=== PATIENT | female | born 1950 | race Caucasian/White ===

== ENCOUNTER 2016-11-17 | Outpatient (CLI) | payer OTHER | END 2016-11-17 15:04 | disposition home or self-care (01) | DX: M54.5 Low back pain (principal) ==

== ENCOUNTER 2017-01-11 14:05 | Outpatient (CLI) | payer OTHER | END 2017-01-11 14:06 | disposition home or self-care (01) | DX: Z12.31 Encounter for screening mammogram for malignant neoplasm of breast (principal) ==

== ENCOUNTER 2017-02-16 15:15 | Outpatient (CLI) | payer OTHER | END 2017-02-16 23:00 | DX: M54.5 Low back pain (principal) ==

== ENCOUNTER 2017-04-27 15:08 | Outpatient (CLI) | payer OTHER | END 2017-04-27 15:09 | disposition home or self-care (01) | LOC: CAM 15:08 | PROVIDERS: ATTEND Internal Medicine | DX: M54.5 Low back pain (principal) | CPT/HCPCS: 97811; 97813 ==

== ENCOUNTER 2017-05-11 15:04 | Outpatient (CLI) | payer OTHER | END 2017-05-11 15:05 | disposition home or self-care (01) | LOC: CAM 15:04 | PROVIDERS: ATTEND Internal Medicine | DX: M54.5 Low back pain (principal) | CPT/HCPCS: 97813; 97814 ==

== ENCOUNTER 2017-05-25 15:14 | Outpatient (CLI) | payer OTHER | END 2017-05-25 15:15 | disposition home or self-care (01) | LOC: CAM 15:14 | PROVIDERS: ATTEND Internal Medicine | DX: M54.5 Low back pain (principal) | CPT/HCPCS: 97813; 97814 ==

== ENCOUNTER 2017-06-08 15:06 | Outpatient (CLI) | payer OTHER | END 2017-06-08 15:07 | disposition home or self-care (01) | LOC: CAM 15:06 | PROVIDERS: ATTEND Internal Medicine | DX: M54.5 Low back pain (principal) | CPT/HCPCS: 97811; 97813 ==

== ENCOUNTER 2017-06-22 15:07 | Outpatient (CLI) | payer OTHER | END 2017-06-22 15:08 | disposition home or self-care (01) | LOC: CAM 15:07 | PROVIDERS: ATTEND Internal Medicine | DX: M54.5 Low back pain (principal) | CPT/HCPCS: 97810; 97811 ==

== ENCOUNTER 2017-07-18 20:14 | Outpatient (CLI) | payer OTHER ==
[2017-07-18 16:00] LABS: BASOPHILS % (AUTO) 0.6 %; EOSINOPHILS # (AUTO) 0.1 10^3/uL (0.0-0.7); EOSINOPHILS % (AUTO) 1.1 %; HCT - HEMATOCRIT 40.2 % (37.0-47.0); HGB - HEMOGLOBIN 13.3 g/dL (12.0-16.0); LYMPHOCYTES # (AUTO) 2.5 10^3/uL (1.5-3.5); LYMPHOCYTES % (AUTO) 42.7 %; MEAN CORPUSCULAR HEMOGLOBIN 29.2 pg (27.0-31.0); MEAN CORPUSCULAR VOLUME 88.3 fL (81.0-99.0); MEAN PLATELET VOLUME 8.1 fL (7.9-10.8); MONOCYTES # (AUTO) 0.5 10^3/uL (0.0-1.0); MONOCYTES % (AUTO) 8.5 %; NEUTROPHILS # (AUTO) 2.8 10^3/uL (1.5-6.6); NEUTROPHILS % (AUTO) 47.1 %; NUCLEATED RED BLOOD CELLS AUTO 0.1 /100WBC; RED BLOOD COUNT 4.55 10^6/uL (4.20-5.40); RED CELL DISTRIBUTION WIDTH 13.4 % (12.0-15.0); UNCORRECTED WHITE BLOOD COUNT 5.8 x10^3/uL; WHITE BLOOD COUNT 5.8 x10^3/uL (4.8-10.8)
[2017-07-18 16:20] LABS: ALBUMIN/GLOBULIN RATIO 1.5 (1.0-2.2); BILIRUBIN,TOTAL 0.8 mg/dL (0.2-1.0); BUN - BLOOD UREA NITROGEN 10 mg/dL (6-20); CARBON DIOXIDE - CO2 29 mmol/L (21-32); CHLORIDE 100 mmol/L (101-111); CHOL/HDL RATIO 2.6 (<4.4); CHOLESTEROL 200 mg/dL; CREATININE 0.7 mg/dL (0.4-1.0); GFR - MDRD 84 (>89); GLUCOSE 94 mg/dL (70-100); HDL CHOLESTEROL 78 mg/dL; LDL/HDL RATIO 1.3 (<4.4); POTASSIUM 3.8 mmol/L (3.5-5.0); SODIUM 137 mmol/L (135-145); TOTAL PROTEIN 7.2 g/dL (6.7-8.2); TRIGLYCERIDES 87 mg/dL; VLDL CHOLESTEROL 17 mg/dL
== END 2017-07-18 20:15 | disposition home or self-care (01) ==
LOC: LAB.R 20:14
PROVIDERS: ATTEND Physician Assistant Medical
DX: M81.0 Age-related osteoporosis without current pathological fracture (principal); Z79.899 Other long term (current) drug therapy; K21.9 Gastro-esophageal reflux disease without esophagitis; F41.9 Anxiety disorder, unspecified; Z11.59 Encounter for screening for other viral diseases; E03.9 Hypothyroidism, unspecified; Z72.89 Other problems related to lifestyle
CPT/HCPCS: 80053; 80061; 82306; 84443; 85025; 86803

== ENCOUNTER 2017-09-22 06:15 | Outpatient (CLI) | payer OTHER ==
[2017-09-22] MEDS ORDERED: IOPAMIDOL-300 100 ML VIAL ONE ×2 (07:11→08:29)
[2017-09-22 07:19] LABS: CREATININE 0.8 mg/dL (0.4-1.0)
[2017-09-22] MEDS: IOPAMIDOL-300 100 ML VIAL IVP ONE ×2 (08:02→08:34)
--- NOTE | 2017-09-22 12:40 | CT Report ---
CT IVP: 09/22/2017 CLINICAL INDICATION: Hematuria. TECHNIQUE: Axial CT images of the abdomen and pelvis were obtained prior to and following 100 mL of I sovue-300 intravenously, using split bolus technique. Initial dose infiltrated, and following checkin g the arm and replacing the IV, the examination proceeded. COMPARISON: CT of the abdomen and pelvis with contrast of 01/07/2016. FINDINGS: Limited evaluation of the lung bases is unremarkable. ABDOMEN: On the unenhanced images, there is no evidence of nephrolithiasis or hydronephrosis. The kid neys demonstrate symmetric uptake and excretion of contrast. Incidental cysts are present in the lowe r pole of the left kidney. No solid renal lesion or collecting system lesion is appreciated. The live r, spleen, pancreas and adrenal glands are unremarkable. The gallbladder is normal. No bowel dilatati on, free gas, or free fluid is present. No abdominal adenopathy is seen. PELVIS: The distal ureters and urinary bladder appear unremarkable. No pelvic free fluid or adenopath y is present. The osseous structures demonstrate degenerative changes. The previously noted small periumbilical hernia is unchanged. IMPRESSION: NO EVIDENT ETIOLOGY FOR PATIENT'S HEMATURIA. In accordance with CT protocol optimization, one or more of the following dose reduction techniques w ere utilized for this exam: automated exposure control, adjustment of mA and/or KV based on patient size, or use of iterative reconstructive technique. JOB #: [id number] EXT JOB #:[id number]
== END 2017-09-22 06:16 | disposition home or self-care (01) ==
LOC: LAB 06:15
PROVIDERS: ATTEND Urology
DX: R31.9 Hematuria, unspecified (principal)
CPT/HCPCS: 36415; 74178; 82565; 84520; Q9967

== ENCOUNTER 2018-01-11 08:15 | Outpatient (CLI) | payer MEDICARE, BC ==
--- NOTE | 2018-01-12 14:51 | Mammography Report ---
DIGITAL SCREENING MAMMOGRAM: 01/11/2018 CLINICAL INDICATION: A 67-year-old, for screening. COMPARISON: 01/2017, 01/2016, 08/2014, 08/2013, 07/2012, 06/2011. TECHNIQUE: Routine CC and MLO projections were obtained of the breasts. FINDINGS: The breasts demonstrate scattered fibroglandular densities bilaterally. Coarse and punctate, typically benign calcifications are present. No suspicious masses, clustered microcalcifications, or regions of architectural distortion are identified. IMPRESSION: BENIGN FINDINGS. RECOMMENDATION: Routine annual screening unless otherwise clinically indicated. BIRADS CATEGORY 2 - benign findings. STANDARD QUALIFYING STATEMENTS: 1. This examination was reviewed with the aid of Computer-Aided Detection (CAD). 2. A negative or benign imaging report should not delay biopsy if clinically suspicious findings are present. Consider surgical consultation if warranted. More than 5% of cancers are not identified by imaging. 3. Dense breasts may obscure an underlying neoplasm. TD: 01/12/2018 14:50
== END 2018-01-11 08:16 | disposition home or self-care (01) ==
LOC: DI 08:15
PROVIDERS: ATTEND Physician Assistant Medical
DX: Z12.31 Encounter for screening mammogram for malignant neoplasm of breast (principal)
CPT/HCPCS: 77067

== ENCOUNTER 2018-01-11 08:16 | Outpatient (CLI) | payer MEDICARE, BC ==
--- NOTE | 2018-01-12 15:09 | DEXA Report ---
DEXA SCAN: 01/11/2018 CLINICAL INDICATION: Osteoporosis. TECHNIQUE: Dual energy x-ray absorptiometry (DXA) was performed on a Retroficiency system. Regions measured are the AP spine, femoral neck, and, if needed, forearm. COMPARISON: None. In accordance with the International Society for Clinical Densitometry (ISCD) guidelines, data from previous exams may be reanalyzed using current recommendations and techniques. This is done to allow a more accurate basis for comparison with the current study. FINDINGS The data for the lumbar spine is as follows: REGION BMD (g/cm/cm) T-SCORE Z-SCORE L1 0.855 -2.3 -0.4 L2 0.879 -2.7 -0.8 L3 0.897 -2.5 -0.6 L4 0.896 -2.5 -0.7 TOTAL L1-L4 0.883 -2.5 -0.6 NOTE: All evaluable vertebrae are used for classification. The data for the hip is as follows: REGION BMD (g/cm/cm) T-SCORE Z-SCORE Neck 0.743 -2.1 -0.4 TOTAL 0.820 -1.5 0.0 NOTE: The femoral neck or total proximal femur, whichever is lowest, is used for classification. IMPRESSION THE WHO CLASSIFICATION BASED ON THE INTERNATIONAL REFERENCE STANDARD IS OSTEOPOROSIS. THE FRACTURE RISK IS HIGH. RECOMMENDATION: Patients with diagnosis of osteoporosis or osteopenia should have regular bone mineral density assessment. For those eligible for Medicare, routine testing is allowed once every 2 years. Testing frequency can be increased for patients who have rapidly progressing disease or for those who are receiving medical therapy to restore bone mass. COMMENT World Health Organization (WHO) definitions for osteoporosis and osteopenia: NORMAL BMD: T-score at 1.0 or higher, fracture risk is low. OSTEOPENIA BMD: T-score between 1.0 and -2.5, fracture risk is increased. OSTEOPOROSIS BMD: T-score at 2.5 or lower, fracture risk high. National Osteoporosis Foundation recommends: 1. Obtain adequate dietary calcium (at least 1200 mg per day) and vitamin D (400 -800 international units per day). 2. Participate, as appropriate, in regular weightbearing and muscle- strengthening exercise. 3. Avoid tobacco use and reduce alcohol and caffeine intake. 4. For more detailed information see the website at www.NOF.org. TD: 01/11/2018 11:37 [place]
== END 2018-01-11 08:17 | disposition home or self-care (01) ==
LOC: DI 08:16
PROVIDERS: ATTEND Physician Assistant Medical
DX: M81.0 Age-related osteoporosis without current pathological fracture (principal)
CPT/HCPCS: 77080

== ENCOUNTER 2018-07-27 08:06 | Outpatient (CLI) | payer MEDICARE, BC ==
[2018-07-27 14:17] LABS: BASOPHILS % (AUTO) 0.7 %; EOSINOPHILS # (AUTO) 0.1 10^3/uL (0.0-0.7); EOSINOPHILS % (AUTO) 1.3 %; HGB - HEMOGLOBIN 13.2 g/dL (12.0-16.0); LYMPHOCYTES # (AUTO) 2.4 10^3/uL (1.5-3.5); MEAN CORPUSCULAR HGB CONC 33.5 g/dL (32.0-36.0); MEAN CORPUSCULAR VOLUME 89.4 fL (81.0-99.0); MEAN PLATELET VOLUME 7.7 fL (7.9-10.8); MONOCYTES # (AUTO) 0.6 10^3/uL (0.0-1.0); NEUTROPHILS # (AUTO) 2.7 10^3/uL (1.5-6.6); PLT - PLATELET COUNT 270 10^3/uL (130-450); RED BLOOD COUNT 4.39 10^6/uL (4.20-5.40); RED CELL DISTRIBUTION WIDTH 13.7 % (12.0-15.0); WHITE BLOOD COUNT 5.8 x10^3/uL (4.8-10.8)
[2018-07-27 14:30] LABS: ALBUMIN/GLOBULIN RATIO 1.3 (1.0-2.2); ALKALINE PHOSPHATASE 56 IU/L (42-121); ALT ALANINE AMINOTRANSFERASE 16 IU/L (10-60); AST ASPARTATE AMINOTRANSFERASE 23 IU/L (10-42); BILIRUBIN,TOTAL 0.9 mg/dL (0.2-1.0); BUN - BLOOD UREA NITROGEN 13 mg/dL (6-20); CALCIUM 8.9 mg/dL (8.5-10.3); CARBON DIOXIDE - CO2 30 mmol/L (21-32); CHLORIDE 102 mmol/L (101-111); CHOLESTEROL 241 mg/dL; CREATININE 0.7 mg/dL (0.4-1.0); GFR - MDRD 84 (>89); GLUCOSE 95 mg/dL (70-100); HDL CHOLESTEROL 87 mg/dL; LDL CHOLESTEROL,CALCULATED 139 mg/dL; SODIUM 139 mmol/L (135-145); TOTAL PROTEIN 7.1 g/dL (6.7-8.2); VLDL CHOLESTEROL 15 mg/dL
[2018-07-27 14:31] LABS: CHOL/HDL RATIO 2.8 (<4.4); LDL/HDL RATIO 1.6 (<4.4)
== END 2018-07-27 08:07 | disposition home or self-care (01) ==
LOC: LAB.R 08:06
PROVIDERS: ATTEND Physician Assistant Medical
DX: K21.9 Gastro-esophageal reflux disease without esophagitis (principal); Z79.899 Other long term (current) drug therapy; M81.0 Age-related osteoporosis without current pathological fracture; F41.9 Anxiety disorder, unspecified; E03.9 Hypothyroidism, unspecified
CPT/HCPCS: 80053; 80061; 82306; 83721; 84443; 85025

== ENCOUNTER 2019-10-07 08:58 | Outpatient (CLI) | payer MEDICARE, BC ==
[2019-10-07 09:29] LABS: EOSINOPHILS % (AUTO) 1.1 %; HGB - HEMOGLOBIN 13.6 g/dL (12.0-16.0); LYMPHOCYTES % (AUTO) 41.3 %; MEAN CORPUSCULAR HEMOGLOBIN 29.6 pg (27.0-31.0); MEAN CORPUSCULAR HGB CONC 32.5 g/dL (32.0-36.0); MEAN CORPUSCULAR VOLUME 91.1 fL (81.0-99.0); MEAN PLATELET VOLUME 8.8 fL (7.9-10.8); MONOCYTES % (AUTO) 8.6 %; NEUTROPHILS % (AUTO) 47.8 %; PLT - PLATELET COUNT 344 10^3/uL (130-450); RED CELL DISTRIBUTION WIDTH 13.3 % (12.0-15.0); WHITE BLOOD COUNT 6.3 x10^3/uL (4.8-10.8)
[2019-10-07 09:40] LABS: ABNORMAL LYMPHS % (MANUAL) 0 %; BAND NEUTROPHILS % (MANUAL) 0 %
[2019-10-07 09:53] LABS: ALBUMIN 4.2 g/dL (3.2-5.5); ALBUMIN/GLOBULIN RATIO 1.2 (1.0-2.2); ALKALINE PHOSPHATASE 56 IU/L (42-121); ALT ALANINE AMINOTRANSFERASE 19 IU/L (10-60); AST ASPARTATE AMINOTRANSFERASE 22 IU/L (10-42); BILIRUBIN,TOTAL 0.5 mg/dL (0.2-1.0); BUN - BLOOD UREA NITROGEN 10 mg/dL (6-20); CALCIUM 9.4 mg/dL (8.5-10.3); CARBON DIOXIDE - CO2 29 mmol/L (21-32); CHLORIDE 101 mmol/L (101-111); CHOL/HDL RATIO 3.3 (<4.4); CHOLESTEROL 248 mg/dL; CREATININE 0.8 mg/dL (0.4-1.0); GFR - MDRD 72 (>89); GLUCOSE 103 mg/dL (70-100); HDL CHOLESTEROL 75 mg/dL; LDL CHOLESTEROL,CALCULATED 152 mg/dL; SODIUM 140 mmol/L (135-145); TOTAL PROTEIN 7.6 g/dL (6.7-8.2); VLDL CHOLESTEROL 21 mg/dL
[2019-10-07 10:38] LABS: BASOPHILS # (MANUAL) 0.1 10^3/uL (0-0.1); BASOPHILS % (MANUAL) 1 %; DIFFERENTIAL COMMENT MANUAL DIFFERENTIAL; EOSINOPHILS # (MANUAL) 0.1 10^3/uL (0-0.7); LYMPHOCYTES # (MANUAL) 2.5 10^3/uL (1.5-3.5); LYMPHOCYTES % (MANUAL) 32 %; MONOCYTES # (MANUAL) 0.6 10^3/uL (0.0-1.0)
[2019-10-07 10:39] LABS: PLATELET ESTIMATE, MANUAL NORMAL (130-450,000) (NORMAL); PLATELET MORPHOLOGY NORMAL APPEARANCE (NORMAL); RBC MORPHOLOGY (MULTIPLE) NORMAL APPEARANCE (NORMAL)
== END 2019-10-07 08:59 | disposition home or self-care (01) ==
LOC: LAB 08:58
PROVIDERS: ATTEND Nurse Practitioner
DX: M81.0 Age-related osteoporosis without current pathological fracture (principal); K21.9 Gastro-esophageal reflux disease without esophagitis; Z79.899 Other long term (current) drug therapy; E03.9 Hypothyroidism, unspecified
CPT/HCPCS: 36415; 80053; 80061; 82306; 83721; 84443; 85025

== ENCOUNTER 2020-10-21 11:12 | Outpatient (CLI) | payer MEDICARE, BC | END 2020-10-21 11:13 | disposition critical access hospital (66) | LOC: EMS 11:12 | PROVIDERS: ATTEND Surgery | DX: M54.5 Low back pain (principal) | CPT/HCPCS: A0425; A0427 ==

== ENCOUNTER 2020-10-21 12:05 | Emergency (ER) | payer MEDICARE, BC ==
--- NOTE | 2020-10-21 13:17 | CT Report ---
PROCEDURE: LUMBAR SPINE WO INDICATIONS: fall off ladder, lumbar pain TECHNIQUE: Noncontrast 3 mm thick sections acquired from the T12 level to the sacrum. Sagittal and coronal refo rmats were constructed. For radiation dose reduction, the following was used: automated exposure co ntrol, adjustment of mA and/or kV according to patient size. COMPARISON: None. FINDINGS: There is an acute L4 burst fracture with approximately 30-40% height loss essentially. Fracture plane s extend through the anterior, superior, and posterior cortices. There is osseous retropulsion of the posterior fracture fragment measuring approximately 4 mm. This flattens the ventral thecal sac and e xerts probable mass effect upon the descending nerve roots. Remaining vertebral body heights maintained. Normal alignment of the lumbar spine. Facet degenerative changes from L2-L3 through L5-S1. IMPRESSION: Acute L4 burst fracture with 30% height loss and osseous retropulsion producing [id number] spin al canal stenosis. Reviewed by: Rohit Wu MD on 10/21/2020 12:15 PM [facility] Approved by: Rohit Wu MD on 10/21/2020 12:15 PM [facility] Station ID: [id number]
--- NOTE | 2020-10-21 14:07 | XRAY Report ---
PROCEDURE: Ankle 3 View LT INDICATIONS: fall, ankle pain TECHNIQUE: 3 views of the ankle were acquired. COMPARISON: None FINDINGS: Bones: There is a minimally displaced fracture of the medial malleolus.. Ankle mortise is normally a ligned. No suspicious bony lesions. Soft tissues: Mild ankle edema. Achilles tendon appears normal. IMPRESSION: Minimally displaced medial malleolus fracture. Reviewed by: Eufemia Washington MD on 10/21/2020 2:05 PM [facility] Approved by: Eufemia Washington MD on 10/21/2020 2:05 PM [facility] Station ID: [id number]
[2020-10-21] MEDS ORDERED: MORPHINE 2 MG/ML CARPUJECT IVP STA ×2 (14:40→14:48)
--- NOTE | 2020-10-21 14:49 | ED Physician Documentation ---
History of Present Illness - Stated complaint Stated Complaint: FALL FROM LADDER - Chief complaint Chief Complaint: Trauma Hd/Nk - History obtained from History obtained from: Patient, EMS - History of Present Illness Timing: Today Pain level max: 8 Pain level now: 6 - Additonal information Additional information: Patient is a 69-year-old female who presents to the emergency department after being approximately 7 to 8 feet up in the air on a ladder trimming trees today. She fell backwards landing on her back on the dirt. Has pain in her lower back and left ankle. Worse with movement, better with rest. No head or neck pain. No loss of consciousness. No vomiting. Not on blood thinners. Review of Systems Ten Systems: 10 systems reviewed and negative Constitutional: denies: Fever, Chills Nose: denies: Rhinorrhea / runny nose, Congestion Cardiac: denies: Chest pain / pressure Respiratory: denies: Cough GI: denies: Vomiting, Diarrhea Skin: denies: Rash Musculoskeletal: denies: Neck pain, Back pain Neurologic: denies: Headache PD PAST MEDICAL HISTORY - Past Medical History Past Medical History: Yes Endocrine/Autoimmune: HyPOthyroidism GI: GERD Psych: Anxiety Musculoskeletal: Osteoarthritis, Osteoporosis, Chronic back pain - Past Surgical History Past Surgical History: Yes /OUTPATIENT FACILITY PHYSICAL THERAPIST: Tubal ligation HEENT: Tonsil/Adenoidectomy - Present Medications Home Medications: Ambulatory Orders Medication Instructions Recorded Confirmed Citalopram Hydrobromide 40 mg PO DAILY 09/08/15 09/09/15 [Citalopram HBr] Levothyroxine [Synthroid] 100 mcg PO DAILY 09/08/15 09/09/15 Pantoprazole [Protonix] 40 mg PO BID 09/08/15 09/09/15 busPIRone [Buspar] 15 mg PO BID 09/08/15 09/09/15 clonazePAM [Clonazepam] 1 mg PO QPM 09/08/15 09/09/15 - Allergies Allergies/Adverse Reactions: Allergies Allergy/AdvReac Type Severity Reaction Status Date / Time No Known Drug Allergies Allergy Verified 10/21/20 12:16 - Social History Does the pt smoke?: No Smoking Status: Never smoker PD ED PE NORMAL - Vitals Vital signs reviewed: Yes - General General: Alert and oriented X 3, No acute distress, Well developed/nourished - HEENT HEENT: Atraumatic, PERRL, Ears normal, Moist mucous membranes, Pharynx benign - Neck Neck: Supple, no meningeal sign, No bony TTP - Cardiac Cardiac: RRR, Strong equal pulses - Respiratory Respiratory: No respiratory distress, Clear bilaterally - Abdomen Abdomen: Soft, Non tender, Non distended - Rectal Rectal: Other (Normal rectal tone. No saddle anesthesia) - Back Back: Other (Tender to palpation low lumbar, midline. No step-off or deformity.) - Derm Derm: Warm and dry - Extremities Extremities: No deformity, Other (Tender to palpation over the left lateral and medial malleolus. normal examination of the foot, calcaneus and lower extremity bilaterally.) - Neuro Neuro: Alert and oriented X 3, produce team lead 2-12 intact, No motor deficit, No sensory deficit, Normal speech Eye Opening: Spontaneous Motor: Obeys Commands Verbal: Oriented GCS Score: 15 - Psych Psych: Normal mood, Normal affect Results - Vitals Vitals: Vital Signs - 24 hr 10/21/20 10/21/20 10/21/20 12:05 14:16 16:00 Temperature 36.8 C 36.1 C L Heart Rate 107 H 107 H 110 H Respiratory 17 18 22 Rate Blood Pressure 132/97 H 128/85 H 118/102 H O2 Saturation 100 100 100 Oxygen O2 Source Room air - Labs Labs: Laboratory Tests 10/21/20 10/21/20 10/21/20 14:54 15:07 15:07 WBC 14.7 H RBC 4.74 Hgb 13.9 Hct 42.7 MCV 90.1 MCH 29.3 MCHC 32.6 RDW 13.2 Plt Count 291 MPV 8.5 Neut # (Auto) 11.6 H Lymph # (Auto) 2.2 [place] # (Auto) 0.7 Eos # (Auto) 0.1 Baso # (Auto) 0.1 Absolute Nucleated RBC 0.00 Nucleated RBC % 0.0 Sodium 143 Potassium 3.7 Chloride 102 Carbon Dioxide 26 Anion Gap 15.0 H BUN 13 Creatinine 0.9 Estimated GFR (MDRD) 62 L Glucose 106 H Calcium 9.9 Total Bilirubin 0.4 AST 27 ALT 25 Alkaline Phosphatase 67 Total Protein 7.5 Albumin 4.2 Globulin 3.3 Albumin/Globulin Ratio 1.3 Nasal Adenovirus (PCR) NOT DETECTED Nasal B. parapertussis DNA (PCR) NOT DETECTED Nasal Coronavir 229E PCR NOT DETECTED Nasal Coronavir HKU1 PCR NOT DETECTED Nasal Coronavir NL63 PCR NOT DETECTED Nasal Coronavir OC43 PCR NOT DETECTED Nasal Enterovir/Rhinovir PCR NOT DETECTED Nasal Influenza B PCR NOT DETECTED Nasal Influenza A PCR NOT DETECTED Nasal Parainfluen 1 PCR NOT DETECTED Nasal Parainfluen 2 PCR NOT DETECTED Nasal Parainfluen 3 PCR NOT DETECTED Nasal Parainfluen 4 PCR NOT DETECTED Nasal RSV (PCR) NOT DETECTED Nasal B.pertussis DNA PCR NOT DETECTED Nasal C.pneumoniae (PCR) NOT DETECTED Francisco Human Metapneumo PCR NOT DETECTED Nasal M.pneumoniae (PCR) NOT DETECTED Nasal SARS-CoV-2 (PCR) NOT DETECTED - Rads (name of study) ct head Radiology: Prelim report reviewed, EMP read contemporaneously, See rad report (No trauma found. ) ct c-spine Radiology: Prelim report reviewed, EMP read contemporaneously, See rad report (No trauma found. ) CT chest Radiology: Prelim report reviewed, EMP read contemporaneously, See rad report (No trauma found. ) Ct Abd/pelvis Radiology: Prelim report reviewed, EMP read contemporaneously, See rad report (No visceral injury found. "Burst" type of L4 compression fracture appears acute, with at least a 50% height reduction as a result, and with retropulsion of the posterior vertebral body into the spinal canal. ) CT L spine Radiology: Prelim report reviewed, EMP read contemporaneously, See rad report (Acute L4 burst fracture with 30% height loss and osseous retropulsion producing [id number]-[id number] spinal canal stenosis. ) L ankle xray Radiology: Prelim report reviewed, EMP read contemporaneously, See rad report (Minimally displaced medial malleolus fracture. ) Procedures - Splint (location) L ankle Splint applied by: Physician, Tech Type of splint: Fiberglass, Short leg, Posterior Other: Patient tolerated well, No complications, Neurovascular intact PD MEDICAL DECISION MAKING - ED course Complexity details: reviewed results, re-evaluated patient, considered differential, d/w patient, d/w sap security consultant ED course: 69-year-old female with a fall off of a ladder today onto dirt. Landed on her back. Has an L4 fracture, 30% height loss with 4 mm of retropulsed fragments causing canal stenosis. Unable to urinate in the emergency department. No saddle anesthesia. She was placed in a splint for the medial malleolus fracture. Will transfer for further care. Discussed the case with Dr. Landa, trauma surgery on-call at [facility] in [place]. Recommends transfer to the ER. Discussed the case with Dr. Etienne, emergency physician who graciously accepts in transfer. Dr. Landa did request CTs of the head, cervical spine, chest, abdomen, pelvis. This was performed. COBRA forms completed. This document was made in part using voice recognition software. While efforts are made to proofread this document, sound alike and grammatical errors may occur. Departure - Departure Disposition: 02 Transfer Acute Care Hosp Clinical Impression: Urinary retention L4 vertebral fracture Qualifiers: Encounter type: initial encounter Fracture type: closed Fracture morphology: unspecified fracture morphology Qualified Code(s): S32.049A - Unspecified fracture of fourth lumbar vertebra, initial encounter for closed fracture Medial malleolar fracture Qualifiers: Encounter type: initial encounter Fracture type: closed Fracture alignment: displaced Laterality: left Qualified Code(s): S82.52XA - Displaced fracture of medial malleolus of left tibia, initial encounter for closed fracture Condition: Stable Discharge Date/Time: 10/21/20 16:30
[2020-10-21 15:14] LABS: BASOPHILS # (AUTO) 0.1 10^3/uL (0.0-0.1); BASOPHILS % (AUTO) 0.3 %; EOSINOPHILS # (AUTO) 0.1 10^3/uL (0.0-0.7); EOSINOPHILS % (AUTO) 0.3 %; HGB - HEMOGLOBIN 13.9 g/dL (12.0-16.0); LYMPHOCYTES # (AUTO) 2.2 10^3/uL (1.5-3.5); MEAN CORPUSCULAR HEMOGLOBIN 29.3 pg (27.0-31.0); MEAN CORPUSCULAR HGB CONC 32.6 g/dL (32.0-36.0); MEAN CORPUSCULAR VOLUME 90.1 fL (81.0-99.0); MEAN PLATELET VOLUME 8.5 fL (7.9-10.8); MONOCYTES # (AUTO) 0.7 10^3/uL (0.0-1.0); NEUTROPHILS # (AUTO) 11.6 10^3/uL (1.5-6.6); NEUTROPHILS % (AUTO) 78.9 %; PLT - PLATELET COUNT 291 10^3/uL (130-450); RED BLOOD COUNT 4.74 10^6/uL (4.20-5.40); RED CELL DISTRIBUTION WIDTH 13.2 % (12.0-15.0); WHITE BLOOD COUNT 14.7 x10^3/uL (4.8-10.8)
[2020-10-21] MEDS ORDERED: IOVERSOL 320 100 ML VIAL IVP ONE ×2 (15:19→18:34)
[2020-10-21 15:24] LABS: ALBUMIN 4.2 g/dL (3.2-5.5); ALBUMIN/GLOBULIN RATIO 1.3 (1.0-2.2); BILIRUBIN,TOTAL 0.4 mg/dL (0.2-1.0); CALCIUM 9.9 mg/dL (8.5-10.3); CREATININE 0.9 mg/dL (0.4-1.0); TOTAL PROTEIN 7.5 g/dL (6.7-8.2)
[2020-10-21 15:56] LABS: C. PNEUMONIAE- RESP PCR PANEL NOT DETECTED
[2020-10-21 16:15] VITALS: BP 118/102
--- NOTE | 2020-10-21 16:29 | CT Report ---
PROCEDURE: HEAD WO INDICATIONS: fall off ladder TECHNIQUE: Noncontrast 4.5 mm thick angled axial sections acquired from the foramen magnum to the vertex. For r adiation dose reduction, the following was used: automated exposure control, adjustment of mA and/or kV according to patient size. COMPARISON: None. FINDINGS: Image quality: Excellent. CSF spaces: Basal cisterns are patent. No extra-axial fluid collections. Ventricles are normal in size and shape. Brain: No midline shift. No intracranial masses or hemorrhage. Lubin-white matter interface is norm al. Skull and face: Calvarium and visualized facial bones are intact, without suspicious lesions. Sinuses: Visualized sinuses and mastoids are clear. IMPRESSION: No trauma found. Reviewed by: Santhosh Dick MD on 10/21/2020 4:27 PM [facility] Approved by: Santhosh Dick MD on 10/21/2020 4:27 PM [facility] Station ID: [id number]
--- NOTE | 2020-10-21 16:30 | CT Report ---
PROCEDURE: CERVICAL SPINE WO INDICATIONS: fall off ladder TECHNIQUE: Noncontrast 3 mm thick sections acquired from the skull base to the T4 level. Sagittal and coronal r eformats were then constructed. For radiation dose reduction, the following was used: automated exp osure control, adjustment of mA and/or kV according to patient size. COMPARISON: None. FINDINGS: Image quality: Excellent. Bones: No fractures or dislocations. Visualized superior ribs are intact. Soft tissues: Prevertebral soft tissues are normal in thickness. No paravertebral hematomas. No ap ical pneumothoraces. IMPRESSION: No trauma found. Moderate degenerative change along the cervical spine is best seen over the middle t hird, but without traumatic subluxation associated. Reviewed by: Santhosh Dick MD on 10/21/2020 4:28 PM [facility] Approved by: Santhosh Dick MD on 10/21/2020 4:28 PM PST Station ID: [id number]
--- NOTE | 2020-10-21 16:41 | CT Report ---
PROCEDURE: Abdomen/Pelvis W INDICATIONS: fall off ladder CONTRAST: IV CONTRAST: Optiray 320 ml: 100 PO CONTRAST: *NO PO CONTRAST TECHNIQUE: After the administration of contrast, 5 mm thick sections acquired from the diaphragms to the sym physis. 5 mm thick coronal and sagittal reformats were acquired. For radiation dose reduction, the following was used: automated exposure control, adjustment of mA and/or kV according to patient size . COMPARISON: None. FINDINGS: Image quality: Excellent. ABDOMEN: Lung bases: Lung bases are clear. Heart size is normal. Solid organs: Liver and spleen are normal in size and enhancement. Gallbladder Biliary system is non dilated. Pancreas enhances normally. No adrenal nodules. Kidneys demonstrate normal size an d enhancement, without hydronephrosis. Peritoneum and bowel: Bowel loops demonstrate normal wall thickness and caliber. No free fluid or a ir. Nodes and vessels: No retroperitoneal or mesenteric adenopathy by size criteria. Aorta and inferior vena cava are normal in size. Miscellaneous: No ventral hernias. PELVIS: Genitourinary: Bladder wall thickness is normal. Moore catheter is noted within the bladder. Miscellaneous: No inguinal hernias or adenopathy. Bones: No suspicious bony lesions that would suggest presence of infection or neoplasm. There is a a cute appearing vertebral body compression fracture involving L. 4, burst type, with the height reduct ion of the middle third of the L4 vertebral body measuring by 7 mm into the lumbosacral spinal canal. Only 1.7 cm versus 2.5 cm at the L3 level immediately above. This represents approximately a 50% hei ght reduction from trauma. The fracture appearance is "burst" type with retropulsion of the posterior L4 vertebral body margin into the spinal canal by 7 mm. This produces a significant spinal stenosis at that level but without associated epidural hematoma. IMPRESSION: No visceral injury found. "Burst" type of L4 compression fracture appears acute, with at least a 50% height reduction as a result, and with retropulsion of the posterior vertebral body into the spinal canal. Findings discussed with the emergency room physician caring for the patient. He reports that she prev iously had difficulty urinating, and a Moore catheter was placed relieving approximately 800 cc urine retention. At this time may definite current root impingement causing urinary retention is not ident ified. Reviewed by: Santhosh Dick MD on 10/21/2020 4:40 PM PST Approved by: Santhosh Dick MD on 10/21/2020 4:40 PM PST Station ID: [id number]
--- NOTE | 2020-10-21 16:44 | CT Report ---
PROCEDURE: CHEST W INDICATIONS: fall off ladder CONTRAST: IV CONTRAST: Optiray 320 ml: 100 PO CONTRAST: *NO PO CONTRAST TECHNIQUE: After the administration of intravenous contrast, 5 mm thick sections acquired from the pulmonary api taurus to the posterior costophrenic angles. 7 mm thick coronal MIP reformats were acquired. For radia tion dose reduction, the following was used: automated exposure control, adjustment of mA and/or kV according to patient size. COMPARISON: None. FINDINGS: Image quality: Excellent. Lungs and pleura: No acute air space opacities. No pleural effusions or pneumothorax. Central and peripheral airways are patent and normal in caliber. Mediastinum: Heart size is normal. No pericardial effusion. No mediastinal or hilar adenopathy by size criteria. Thoracic aorta and central pulmonary arteries are normal in size. Esophagus is ivon l in caliber. No hiatal hernia. Bones and chest wall: No suspicious bony lesions. No vertebral body compression fractures. No axil sunday or supraclavicular adenopathy by size criteria. Thyroid gland appears normal where well seen. Abdomen: Visualized upper abdominal solid organs appear normal. Upper abdominal bowel loops are nor mal in caliber. IMPRESSION: No trauma found. Reviewed by: Santhosh Dick MD on 10/21/2020 4:43 PM PST Approved by: Santhosh Dick MD on 10/21/2020 4:43 PM PST Station ID: [id number]
== END 2020-10-21 16:30 | disposition short-term general hospital (02) ==
LOC: EDUNIT# → ED 12:05
DX: S32.041A Stable burst fracture of fourth lumbar vertebra, initial encounter for closed fracture (principal); S82.52XA Displaced fracture of medial malleolus of left tibia, initial encounter for closed fracture; W11.XXXA Fall on and from ladder, initial encounter; Y93.H2 Activity, gardening and landscaping; R33.9 Retention of urine, unspecified; Z20.828 Contact with and (suspected) exposure to other viral communicable diseases; M48.061 Spinal stenosis, lumbar region without neurogenic claudication
CPT/HCPCS: 29515; 36415; 51702; 70450; 71260; 72125; 72131; 73610; 74177; 80053; 85025; 87631; 96374; 99285; Q9967; 0202U

== ENCOUNTER 2020-10-21 16:18 | Outpatient (CLI) | payer MEDICARE, BC | END 2020-10-21 16:19 | disposition short-term general hospital (02) | LOC: EMS 16:18 | PROVIDERS: ATTEND Surgery | DX: S32.049A Unspecified fracture of fourth lumbar vertebra, initial encounter for closed fracture (principal); S82.892A Other fracture of left lower leg, initial encounter for closed fracture; W11.XXXA Fall on and from ladder, initial encounter | CPT/HCPCS: A0425; A0426 ==

== ENCOUNTER 2020-11-13 10:34 | Outpatient (CLI) | payer MEDICARE, BC ==
--- NOTE | 2020-11-13 11:40 | XRAY Report ---
PROCEDURE: Ankle 3 View LT INDICATIONS: LEFT ANKLE FRACTURE TECHNIQUE: 3 views of the ankle were acquired. COMPARISON: Prior foot plain films earlier same day. FINDINGS: Bones: No previously unidentified fractures or dislocations. Fine bone detail is obscured by overly ing splint material. A diagonal fracture appears present across the superior base of the medial malle olus, and clear visualization of a fracture at the lateral malleolus is not found. Ankle mortise is n ormally aligned. No suspicious bony lesions. Soft tissues: No tibiotalar joint effusion. Achilles tendon appears normal. IMPRESSION: Please correlate for presence or absence of earlier comparison plain films without cast/ splint in place. Currently it is identifiable that a high base fracture, diagonal, at the medial mall eolus is present but clear visualization of the lateral malleolus is quite limited. No definite later al malleolus fracture by the foot and ankle plain films available currently. Reviewed by: Santhosh Dick MD on 11/13/2020 11:39 AM PST Approved by: Santhosh Dick MD on 11/13/2020 11:39 AM PST Station ID: [id number]
--- NOTE | 2020-11-13 11:42 | XRAY Report ---
PROCEDURE: Foot 3 View LT INDICATIONS: LEFT ANKLE Fx TECHNIQUE: 3 views of the foot were acquired. COMPARISON: Ankle plain films same day reviewed. FINDINGS: Bones: No fractures or dislocations. No suspicious bony lesions. Soft tissues: No tibiotalar joint effusion. Achilles tendon appears normal. IMPRESSION: The ankle plain films similarly are limited by presence of overlying cast/splint. A fracture at the h igh base of the medial malleolus can be seen on the ankle plain films. No definite fracture on the fo ot plain films. Earlier plain films are available prior to splinting/casting they should be reviewed for potentially hidden fractures. Reviewed by: Santhosh Dick MD on 11/13/2020 11:40 AM PST Approved by: Santhosh Dick MD on 11/13/2020 11:40 AM PST Station ID: [id number]
--- NOTE | 2020-11-13 11:44 | XRAY Report ---
PROCEDURE: Ankle 3 View LT INDICATIONS: LT ANKLE FRACTURE TECHNIQUE: 3 views of the ankle were acquired. COMPARISON: None FINDINGS: Bones: Healing nondisplaced fracture involving anterior portion of medial malleolus is seen. No other fracture or dislocation. Ankle mortise is normally aligned. No suspicious bony lesions. Soft tissues: No tibiotalar joint effusion. Achilles tendon appears normal. IMPRESSION: Healing nondisplaced medial malleolus fracture with stable and anatomic alignment. Reviewed by: Osorio Thakur MD on 11/13/2020 11:42 AM PST Approved by: Osorio Thakur MD on 11/13/2020 11:42 AM PST Station ID: [id number]
== END 2020-11-13 23:59 | disposition home or self-care (01) ==
LOC: DI.N 10:34
PROVIDERS: ATTEND Orthopaedic Surgery
DX: S92.309A Fracture of unspecified metatarsal bone(s), unspecified foot, initial encounter for closed fracture (principal); S82.55XA Nondisplaced fracture of medial malleolus of left tibia, initial encounter for closed fracture

== ENCOUNTER 2020-12-04 07:36 | Outpatient (CLI) | payer MEDICARE, BC ==
--- NOTE | 2020-12-04 17:03 | XRAY Report ---
PROCEDURE: Ankle 3 View LT INDICATIONS: NONDISPLACED FX OF MEDIAL MALLEOLUS, LEFT TECHNIQUE: 3 views of the ankle were acquired. COMPARISON: 11/13/2020 FINDINGS: Bones: There is a healing fracture of the medial malleolus with increased bridging callus. Fracture l ine remains visible. No change in alignment. Ankle mortise demonstrates preserved alignment. No suspi cious bony lesions. Soft tissues: There is a small tibiotalar joint effusion. Achilles tendon appears normal. IMPRESSION: 1. Healing fracture of the medial malleolus. Reviewed by: Darion Mehta MD on 12/04/2020 5:02 PM PST Approved by: Darion Mehta MD on 12/04/2020 5:02 PM PST Station ID: [id number]
== END 2020-12-04 23:59 | disposition home or self-care (01) ==
LOC: DI.N 07:36
PROVIDERS: ATTEND Orthopaedic Surgery
DX: S82.52XD Displaced fracture of medial malleolus of left tibia, subsequent encounter for closed fracture with routine healing (principal)

== ENCOUNTER 2020-12-28 08:41 | Outpatient (CLI) | payer MEDICARE, BC ==
--- NOTE | 2020-12-28 09:53 | XRAY Report ---
PROCEDURE: Lumbar Spine 2 View INDICATIONS: CLOSED BURST FRACTURE OF LUMBAR VERTEBRA,SEQUELA TECHNIQUE: 2 views of the lumbar spine were acquired. COMPARISON: None. FINDINGS: Bones: 5 ubi-ghy-yiqkhhh vertebrae are present. There is posterior fusion from L3 through L5. There is trace retrolisthesis of L2 on L3, L3-4, L4 on L5. There is height loss consistent with prior frac ture at L4. Moderate disc and foraminal narrowing are noted at L5-S1. No suspicious bony lesions. Soft tissues: Overlying bowel gas pattern is normal. No suspicious soft tissue calcifications. IMPRESSION: Posterior fusion and L4 vertebral fracture as above. Reviewed by: Eufemia Washington MD on 12/28/2020 8:51 AM [facility] Approved by: Eufemia Washington MD on 12/28/2020 8:51 AM [facility] Station ID: [id number]
== END 2020-12-28 08:42 | disposition home or self-care (01) ==
LOC: DI 08:41
PROVIDERS: ATTEND Neurological Surgery
DX: S32.041D Stable burst fracture of fourth lumbar vertebra, subsequent encounter for fracture with routine healing (principal); Z98.1 Arthrodesis status; M48.07 Spinal stenosis, lumbosacral region

== ENCOUNTER 2021-02-01 08:26 | Outpatient (CLI) | payer MEDICARE, BC ==
--- NOTE | 2021-02-01 10:06 | DEXA Report ---
PROCEDURE: Dexa Spine and/or Hip INDICATIONS: POST MENOPAUSAL TECHNIQUE: Dual energy x-ray absorptiometry (DXA) was performed on a [employer] System. Regions measur ed are the AP Spine, femoral neck, and if needed forearm. COMPARISON: Similar study from 01/11/2018.. FINDINGS: Lumbar Spine: Bone Mineral Density 0.907 g/cm/cm,T score -2.1, osteopenia, with a statistically insignificant in crease in bone radiodensity from the 2018 study of 8.8%. Left Hip: Bone Mineral Density 0.734 g/cm/cm,T score -2.2, osteopenia, and this represents a statistically sig nificant reduction in bone mineral density of the left hip overall of 10.5%. Left Femoral Neck: Bone Mineral Density 0.677 g/cm/cm, T score -2.6, osteoporosis. (T score greater or equal to -1.0: NORMAL) (T score from -1.1 to -2.4: OSTEOPENIA) (T score less than or equal to -2.5 to: OSTEOPOROSIS) Impression: Osteopenia at the lumbosacral spine, stable from 2018, and osteopenia also at the left hi p overall, with a statistically significant reduction of bone mineral density of the left hip overall . Osteoporosis at the left femoral neck. Patients with diagnosis of osteoporosis or osteopenia should have regular bone mineral density assess ment. For those eligible for Medicare, routine testing is allowed once every 2 years. Testing frequ ency can be increased for patients who have rapidly progressing disease or for those who are receivin g medical therapy to restore bone mass. Reviewed by: Santhosh Dick MD on 02/01/2021 10:04 AM PDT Approved by: Santhosh Dick MD on 02/01/2021 10:04 AM PDT Station ID: [id number]
== END 2021-02-01 08:27 | disposition home or self-care (01) ==
LOC: DI 08:26
PROVIDERS: ATTEND Nurse Practitioner
DX: M81.8 Other osteoporosis without current pathological fracture (principal)

== ENCOUNTER 2021-02-16 10:26 | Outpatient (CLI) | payer MEDICARE, BC ==
--- NOTE | 2021-02-16 18:01 | XRAY Report ---
PROCEDURE: Lumbar Spine 2 View INDICATIONS: POST L3-L5 LAMINECTOMY FUSION FROM L4 BURST FRACTURE TECHNIQUE: 2 views of the lumbar spine were acquired. COMPARISON: 12/28/2020 FINDINGS: Bones: 5 [id number]-std-[id number] vertebrae are present. Stable posterior fusion of L3-L5. Stable alignment. There is normal bony alignment with trace retrolisthesis of L2 on L3 and L4 and L5. Stable vertebral body height loss at L4 compatible with reported history of fracture. Stable appearance of moderate s pondylosis at L5-S1 as well as L1-L2. No suspicious osseous lesions. No acute osseous abnormality see n. Visualized surgical hardware appear intact. No evidence for hardware complication. Soft tissues: Overlying bowel gas pattern is normal. No suspicious soft tissue calcifications. Ath erosclerosis. IMPRESSION: Stable post surgical changes and alignment of posterior fusion of L3-L5 without evidence for hardware complication. Stable appearance of L4 vertebral body fracture. Reviewed by: Castro Chandler MD on 02/16/2021 6:00 PM PDT Approved by: Castro Chandler MD on 02/16/2021 6:00 PM PDT Station ID: [id number]
== END 2021-02-16 10:27 | disposition home or self-care (01) ==
LOC: DI 10:26
PROVIDERS: ATTEND Neurological Surgery
DX: S32.001S Stable burst fracture of unspecified lumbar vertebra, sequela (principal); Z98.1 Arthrodesis status

== ENCOUNTER 2021-03-01 07:58 | Outpatient (CLI) | payer MEDICARE, BC ==
--- NOTE | 2021-03-01 17:13 | XRAY Report ---
PROCEDURE: Lumbar Spine w/Flex/Ext INDICATIONS: LUMBAR FX TECHNIQUE: 6 views of the lumbar spine acquired. COMPARISON: 12/28/2020 and 02/16/2021. FINDINGS: Bones: Postsurgical changes compatible with L3-L5 posterior fusion and L3, L4 laminectomies are stabl e. Orthopedic hardware is intact. No lucencies at the bone hardware interface. 5 vzz-chv-fjfenca vert ebrae are present. There is trace L1-L2, L2-L3 and L4-L5 retrolisthesis. L4 compression fracture is stable compared to prior exams. No new vertebral body compression fractures. No suspicious bony lesi ons. Soft tissues: Overlying bowel gas pattern is normal. No suspicious soft tissue calcifications. Flexion/extension: There is reduced range of motion, with preserved normal alignment. IMPRESSION: 1. Stable examination. 02/16/2021 and 12/28/2020. 2. Status post L3-L5 posterior fusion as well as L3 and L4 laminectomies. 3. Stable L4 compression fracture. 4. Reduced range of motion the flexed and extended positions without abnormal vertebral body motion. Reviewed by: Ashley Monique MD, PhD on 03/01/2021 5:11 PM PDT Approved by: Ashley Monique MD, PhD on 03/01/2021 5:11 PM PDT Station ID: [id number]
== END 2021-03-01 07:59 | disposition home or self-care (01) ==
LOC: DI 07:58
PROVIDERS: ATTEND Physician Assistant Medical
DX: S32.001D Stable burst fracture of unspecified lumbar vertebra, subsequent encounter for fracture with routine healing (principal); Z98.1 Arthrodesis status

== ENCOUNTER 2022-01-10 08:22 | Outpatient (CLI) | payer MEDICARE, BC ==
[2022-01-10 08:43] LABS: BASOPHILS # (AUTO) 0.1 10^3/uL (0.0-0.1); BASOPHILS % (AUTO) 0.9 %; EOSINOPHILS # (AUTO) 0.1 10^3/uL (0.0-0.7); EOSINOPHILS % (AUTO) 1.6 %; HCT - HEMATOCRIT 40.3 % (37.0-47.0); HGB - HEMOGLOBIN 13.1 g/dL (12.0-16.0); LYMPHOCYTES # (AUTO) 2.9 10^3/uL (1.5-3.5); LYMPHOCYTES % (AUTO) 41.7 %; MEAN CORPUSCULAR HEMOGLOBIN 29.6 pg (27.0-31.0); MEAN CORPUSCULAR HGB CONC 32.5 g/dL (32.0-36.0); MEAN CORPUSCULAR VOLUME 91.2 fL (81.0-99.0); MONOCYTES # (AUTO) 0.8 10^3/uL (0.0-1.0); MONOCYTES % (AUTO) 12.1 %; NEUTROPHILS % (AUTO) 43.6 %; PLT - PLATELET COUNT 335 10^3/uL (130-450); RED BLOOD COUNT 4.42 10^6/uL (4.20-5.40); RED CELL DISTRIBUTION WIDTH 13.8 % (12.0-15.0)
[2022-01-10 09:04] LABS: ALBUMIN 4.4 g/dL (3.2-5.5); ALBUMIN/GLOBULIN RATIO 1.5 (1.0-2.2); ALKALINE PHOSPHATASE 54 IU/L (42-121); ALT ALANINE AMINOTRANSFERASE 18 IU/L (10-60); AST ASPARTATE AMINOTRANSFERASE 20 IU/L (10-42); BILIRUBIN,TOTAL 1.2 mg/dL (0.2-1.0); BUN - BLOOD UREA NITROGEN 23 mg/dL (6-20); CALCIUM 9.6 mg/dL (8.5-10.3); CARBON DIOXIDE - CO2 28 mmol/L (21-32); CHLORIDE 101 mmol/L (101-111); CHOL/HDL RATIO 2.7 (<4.4); CHOLESTEROL 259 mg/dL; CREATININE 0.8 mg/dL (0.4-1.0); GFR - MDRD 71 (>89); GLUCOSE 107 mg/dL (70-100); HDL CHOLESTEROL 96 mg/dL; LDL CHOLESTEROL,CALCULATED 150 mg/dL; LDL/HDL RATIO 1.6 (<4.4); POTASSIUM 4.7 mmol/L (3.5-5.0); SODIUM 140 mmol/L (135-145); TOTAL PROTEIN 7.3 g/dL (6.7-8.2); TRIGLYCERIDES 64 mg/dL; VLDL CHOLESTEROL 13 mg/dL
[2022-01-10 09:15] LABS: THYROID STIMULATING HORMONE 0.29 uIU/mL (0.34-5.60)
[2022-01-10 11:13] LABS: FREE T4 (FREE THYROXINE) 1.37 ng/dL (0.58-1.64)
== END 2022-01-10 08:23 | disposition home or self-care (01) ==
LOC: LAB 08:22
PROVIDERS: ATTEND Family Medicine
DX: G47.00 Insomnia, unspecified (principal); M79.673 Pain in unspecified foot; F41.9 Anxiety disorder, unspecified; F32.A Depression, unspecified; K21.9 Gastro-esophageal reflux disease without esophagitis; M54.50 Low back pain, unspecified; G89.29 Other chronic pain
CPT/HCPCS: 36415; 80053; 80061; 83721; 84439; 84443; 85025

== ENCOUNTER 2022-01-27 10:04 | Outpatient (CLI) | payer MEDICARE, BC ==
[2022-01-27 11:10] VITALS: BP 130/75
--- NOTE | 2022-01-27 11:10 | SLEEP CARE CONSULTATION ---
Information from patient questionnaire entered by Papito Jansen MA. I have reviewed and concur with the information entered by Papito Jansen MA. This document represents the service I personally performed and the decisions made by me, Terri Sheehan ARNP. History of Present Illness Service Date and Time: 01/27/2022 1004 Reason for Visit: New patient ([facility] , PRIOR STUDY NEG. ) Chief Complaint: reports: Insomnia, Unrefreshed sleep, Snoring, Observed pauses in breathing, Frequent awakenings at night, Other (not energetic in daytime) Date of Onset: 2-4 MONTHS Usual bedtime: 730-800 PM Time it takes to fall asleep: 15-30 MINUTES Snores at night: Yes Observed to quit breathing while asleep: Yes Sleeps alone due to snoring: No Number of times waking at night: 4-5 Reasons for waking at night: reports: Bathroom, Other (unknown reasons). denies: Choking, Snoring, Gasping for air Toss, Turn, or Twitch while sleeping: Yes Recalls having dreams: Yes Usually gets out of bed at: 0630, wakes up earlier than her get up time Feels refreshed in the morning: No Morning headache: No Sleepy or fatigued during the day: Yes (energy low more than sleepiness) Ever fallen asleep while driving: No Takes day naps: No and Where: [facility] Type of Sleep Study: Polysomnography Additional HPI information: I had the pleasure of seeing LUZ JASON today regarding the possibility of her having a sleep disorder. Her current complaints are insomnia and frequent night awakenings. She states several months ago she was not sleeping. She would go to sleep but then wake up and not be able to go back to sleep. Her PCP trialled her on Duloxetine DR and Nortriptyline but they did not work or she had side effects. She was then sent here for evaluation. She is developing some anxiety about going to sleep. If she has some "drinks" of alcohol at night she will sleep through the night. She had a previous sleep study and was told she had snoring. She used an oral appliance for snoring to reduce her snoring. She feels like her stress level is fairly high due to her partner's health and her health too. She broke her back about a year ago and suffers from pain that is just now "leveling out". 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 Patient is Single and lives in [place]. Have you smoked in the past 12 months: No Cigarettes per day (20/pack): Quit date: 1987 Alcohol use: Yes Alcohol amount and frequency: 3-4 X WEEKLY Caffeine use: No Family History Family history of sleep disordered breathing: No (DONT KNOW) Allergies and Home Medications Known drug allergies: No Drug allergies reviewed: Yes Home medication list reviewed: Yes Allergy and home medication list: Allergies No Known Drug Allergies Allergy (Verified 10/21/20 12:16) Medications: Levothyroxine Clonazepam Citalopram Buspirone Fluticasone nasal spray B complex Vitamins & Minerals Bone Up Flaxseed oil Magnesium Equate Gentle Laxative Stool softener Gabapentin Aleve Tylenol Nature's Bounty Sleep 3-Melatonin Review of Systems Weight gain over past 5 years: 8 pounds Gastrointestinal: reports: heartburn Ear/Nose/Throat: reports: sinus problems (allergy), tonsillectomy Endocrine: reports: thyroid disease, sluggishness Musculoskeletal: reports: back pain, muscle pain or cramping Immunologic: reports: sneezing, allergies to food or environment Physical Exam Vital signs obtained and entered by: Stephanie JANSEN CMA AAMA Blood Pressure: 130/75 (PULSE 76, RESP 18, RIGHT,) Cuff size: wrist Heart Rate: 73 O2 Saturation: 97 (N95) Height: 5 ft 2 in Weight: 132 lb Body Mass Index: 24.1 BMI Classification: Healthy weight Neck circumference: 13.5 (INCHES) Mouth and throat: narrow oropharynx Soft palate: long Hard palate: normal Uvula: normal Uvula visualization: 50% Mallampati Class II Tongue: enlarged in size with teeth wasserman on lateral edges Tonsils: absent bilaterally Neck: normal w/o lymphadenopathy or thyromegaly Heart: regular rate and rhythm Lungs: clear bilaterally Impression and Plan 1. Suspected Obstructive Sleep Apnea-Hypopnea Syndrome, as suggested by a history of loud and irregular snoring, observed cessation of breath while asleep and frequent awakening during the night. Narrow oropharynx and obesity are common predisposing factors for obstructive sleep apnea-hypopnea syndrome. I recommend proceeding to polysomnography to confirm the diagnosis and to assess severity. If the patient has significant sleep disordered breathing, a manual CPAP titration study will also be performed to find the optimal treatment pressure. I informed the patient of what the sleep studies involve and after some discussion, obtained agreement to proceed. The pathophysiology of obstructive sleep apnea-hypopnea syndrome was discussed with the patient and health risks of cardiovascular and cerebrovascular disease if not treated. 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 Patient agree d to plan. * Schedule polysomnography +- manual CPAP titration study and return in 1-2 weeks after the study to discuss results. * Avoid alcohol, sedative and muscle relaxant around bedtime. * Maintain a healthy weight. * Review instructions provided by trained office staff on how to prepare for the sleep study. * Return for follow-up after sleep study completed. Counseling Topics: Weight control Visit Type: In Office Time Spent with Patient (minutes): 31 Provider Statement: I spent 100% of the Face to Face Visit with the patient with greater than 50% spent counseling the patient and coordination of care.
== END 2022-01-27 10:05 | disposition home or self-care (01) ==
LOC: SC 10:04
PROVIDERS: ATTEND Nurse Practitioner Family
DX: G47.8 Other sleep disorders (principal); R06.83 Snoring; R06.81 Apnea, not elsewhere classified
CPT/HCPCS: 99203; G0463; 99212

== ENCOUNTER 2022-02-23 08:26 | Outpatient (CLI) | payer MEDICARE, BC | END 2022-02-23 08:27 | disposition home or self-care (01) | LOC: SC 08:26 | PROVIDERS: ATTEND Nurse Practitioner Family | DX: G47.8 Other sleep disorders (principal); R06.81 Apnea, not elsewhere classified; R06.83 Snoring | CPT/HCPCS: 95810 ==

== ENCOUNTER 2022-03-25 10:33 | Outpatient (CLI) | payer MEDICARE, BC ==
[2022-03-25 11:09] VITALS: BP 143/93
--- NOTE | 2022-03-25 11:09 | SLEEP CARE CONSULTATION ---
Information from patient questionnaire entered by Papito Henry MA. I have reviewed and concur with the information entered by Papito Henry MA. This document represents the service I personally performed and the decisions made by Sissy lai Caren J, ARNP. History of Present Illness Service Date and Time: 03/25/2022 1033 Initial [place] Sleepiness Scale score: 0 (01/2022) Current [place] Sleepiness Scale score: 0 (03/2022) Additional HPI information: LUZ JASON returns for follow up and results of the recently performed polysomnography. The patient was informed of the following findings: No significant sleep disordered breathing with an average AHI of 0.6 and obie oxygen saturation of 90%. I explained the pathophysiology behind obstructive sleep apnea. Patient does not have sleep apnea and was advised how weight gain could increase the risk of developing sleep apnea in the future. Patient has light snoring. Snoring can be reduced by weight loss. Weight loss is best achieved with diet consult. Patient instructed to contact PCP for referral. Snoring can also be treated with an oral appliance from a dentist. Advised to check insurance coverage. In addition, an ENT evaluation can be do to see if other treatment is indicated. Patient counseled not drink alcohol less than 4 hours before bedtime as it can increase snoring and apnea. Patient was cautioned about risks of drowsy driving until sleepiness symptoms resolve. Patient denies drowsy driving. Sleep Study - Results Type of Sleep Study: Polysomnography (F/U POLY, 02/23/22 [facility],) Year and Where: 2009 [facility] Polysomnography/Home Sleep Study results: IMPRESSION: The quality of the study is good. The patient had reduced sleep efficiency due to emergency medicine awakening. The sleep architecture was relatively normal considering the first- night effect. Respiratory monitoring showed no significant sleep disordered breathing (AHI = 0.6) or hypoxia (obie oxygen saturation of 90%). The patient slept adequately in supine position (supine AHI = 1.3; non-supine = 0.00 ). Snore was infrequent and light in intensity. There was no significant periodic leg movement of sleep. Cardiac rhythm was normal sinus rhythm without significant arrhythmia. No abnormal behavior (parasomnia) observed during the night. Allergies and Home Medications Known drug allergies: Yes Drug allergies reviewed: Yes Home medication list reviewed: Yes (no changes) Allergy and home medication list: Allergies No Known Drug Allergies Allergy (Verified 10/21/20 12:16) Review of Systems Review of systems same as previous: Yes (no changes) Physical Exam Vital signs obtained and entered by: JULIÁN HYDE Blood Pressure: 143/93 (RESP 18, PULSE 93, RIGHT,) Cuff size: wrist Heart Rate: 82 O2 Saturation: 97 (N95) Height: 5 ft 2 in Weight: 132 lb (WITH CLOTHES) Body Mass Index: 24.1 BMI Classification: Healthy weight Impression and Plan 1. Insomnia, sleep maintenance. Patient states that she has no trouble falling asleep but then she will wake up early and not be able to get back to sleep for hours. She states lately she has been drinking alcohol, "several drinks", prior to going to bed. She will wake up about 1 or so in the morning to use the restroom but she is able to go back to sleep easily. She states she has been taking clonazepam for a while to help her sleep but she does not feel it is working. After our discussion, I do not feel long-term alcohol use to go to sleep is the best solution. I think she may benefit from further evaluation of her insomnia and we will have her follow-up with Dr. Taylor. Patient does agree. A sleep diary will be completed for the next 2 weeks to assist implementation of recommendations and for further evaluation of sleep concerns. * Follow up with Dr Taylor for insomnia evaluation * Avoid alcohol consumption near bedtime * Return in 2-4 weeks for follow up. Visit Type: In Office Time Spent with Patient (minutes): 27 Provider Statement: I spent 100% of the Face to Face Visit with the patient with greater than 50% spent counseling the patient and coordination of care.
== END 2022-03-25 10:34 | disposition home or self-care (01) ==
LOC: SC 10:33
PROVIDERS: ATTEND Nurse Practitioner Family
DX: G47.00 Insomnia, unspecified (principal)
CPT/HCPCS: 99213; G0463; 99212

== ENCOUNTER 2022-04-18 10:30 | Outpatient (CLI) | payer MEDICARE, BC ==
[2022-04-18 22:20] VITALS: BP 147/95
--- NOTE | 2022-04-18 22:20 | SLEEP CARE CONSULTATION ---
Information from patient questionnaire entered by Papito Henry MA. I have reviewed and concur with the information entered by Papito Henry MA. This document represents the service I personally performed and the decisions made by me, Moises Saucedo MD, [facility]. History of Present Illness Service Date and Time: 04/18/2022 1030 Reason for follow up: one month Year and Where: 2009 [facility] Type of Sleep Study: Polysomnography HPI additional information: Ms. Quintana returned for follow up of insomnia which, according to her, started just a few months ago. She had normal sleep studies in 2009 and in February of this year. She complains of waking up during the night for hours unless she drinks alcohol. She has back pain. She broke her back 1.5 year ago. She does not take pain medication. Her sleep habit includes going to bed at 6 pm and read for 2.5 hours. She turns the light off at 8:30 pm and falls asleep readily within 10 minutes. She takes clonazepam 2 tablets and sometimes drink alcohol on top of that. She then gets up at 2 am to go to the bathroom. She falls back asleep 4-6 am. She gets out of bed at 8 am. No naps during the day. She wears an oral appliance at night for snore. No restless leg syndrome. Sleep Study - Results Type of Sleep Study: Polysomnography Year and Where: 2009 [facility] Subjective Initial [place] Sleepiness Scale score: 0 (01/2022) Current [place] Sleepiness Scale score: 0 (04/18/2022) Allergies and Home Medications Known drug allergies: No Drug allergies reviewed: Yes Home medication list reviewed: Yes Allergy and home medication list: Allergies No Known Drug Allergies Allergy (Verified 10/21/20 12:16) Review of Systems Review of systems same as previous: Yes Physical Exam Vital signs obtained and entered by: JULIÁN HYDE Blood Pressure: 147/95 (resp 18, pulse 94, left) Heart Rate: 96 O2 Saturation: 97 Height: 5 ft 2 in Weight: 133 lb (clothes) Body Mass Index: 24.3 BMI Classification: Healthy weight Impression and Plan IMPRESSION: 1. Insomnia, due to excessive time spent in bed of 14 hours a night (from 6 pm to 8 am). I advised to not turn off the light until 9 pm and get out of bed no later than 6 am because she claims that she needs 9 hours of sleep a night. If insomnia persists, she may have to reduce the time spent in bed further to the normal 8 hours a night. 2. Primary snore, controlled with the oral appliance therapy. PLAN: 1. Maintain a regular wake up time and allow no more than 9 hours for sleeping. She chooses 9 pm to 6 am. 2. Do not drink alcohol with clonazepam. 3. Return for follow up on as needed basis. Follow up with Sleep Care in: as needed Visit Type: In Office Time Spent with Patient (minutes): 20 Provider Statement: I spent 100% of the Face to Face Visit with the patient with greater than 50% spent counseling the patient and coordination of care.
== END 2022-04-18 10:31 | disposition home or self-care (01) ==
LOC: SC 10:30
PROVIDERS: ATTEND Internal Medicine Pulmonary Disease
DX: G47.00 Insomnia, unspecified (principal)
CPT/HCPCS: 99213; G0463; 99212

== ENCOUNTER 2022-09-26 12:56 | Outpatient (CLI) | payer MEDICARE, BC ==
--- NOTE | 2022-09-27 12:14 | Mammography Report ---
BILATERAL DIGITAL SCREENING MAMMOGRAM 3D/2D: 09/26/2022 CLINICAL: Routine screening. Comparison is made to exams dated: 01/11/2018 mammogram and 01/11/2017 mammogram - [facility]. There are scattered areas of fibroglandular density in both breasts (category b / 25%-50% glandular t issue). No significant masses, calcifications, or other findings are seen in either breast. There has been no significant interval change. IMPRESSION: NEGATIVE There is no mammographic evidence of malignancy. A 1 year screening mammogram is recommended. Based on the Tyrer Cuzick model (a risk assessment model) the patients lifetime risk is 3.5% and her 10 year risk is 2.2%. According to the ACR, ACS, and NCCN guidelines, an annual breast MRI exam rachid g with mammogram is recommended if the patients lifetime risk is 20% or greater. This exam was interpreted at Station ID: [id number]. NOTE: For mammograms, a report in lay terms will be sent to the patient. Approximately 15% of breast malignancies will not be visualized mammographically. In the management of a palpable breast mass, a negative mammogram must not discourage biopsy of a clinically suspicious lesion. Electronically Signed By: Sanford arnett/mehdi:09/26/2022 16:53:41 ACR BI-RADS Category 1: Negative 3341F PARENCHYMAL PATTERN: (A) - The breast(s) demonstrate(s) scattered fibroglandular densities. BI-RADS CATEGORY: (1) - 1 RECOMMENDATION: (ANNUAL) - Recommend routine annual screening mammography. [id number] 1 year screening LATERALITY: (B)
== END 2022-09-26 12:57 | disposition home or self-care (01) ==
LOC: DI 12:56
PROVIDERS: ATTEND Physician Assistant
DX: Z12.31 Encounter for screening mammogram for malignant neoplasm of breast (principal)

== ENCOUNTER 2023-12-04 08:13 | Outpatient (CLI) | payer MEDICARE, BC ==
[2023-12-04 08:34] LABS: BASOPHILS # (AUTO) 0.1 10^3/uL (0.0-0.1); BASOPHILS % (AUTO) 0.8 %; EOSINOPHILS # (AUTO) 0.2 10^3/uL (0.0-0.7); EOSINOPHILS % (AUTO) 2.7 %; HGB - HEMOGLOBIN 14.2 g/dL (12.0-16.0); LYMPHOCYTES # (AUTO) 3.2 10^3/uL (1.5-3.5); LYMPHOCYTES % (AUTO) 41.9 %; MEAN CORPUSCULAR HEMOGLOBIN 31.3 pg (27.0-31.0); MEAN CORPUSCULAR HGB CONC 32.3 g/dL (32.0-36.0); MEAN CORPUSCULAR VOLUME 97.1 fL (81.0-99.0); MEAN PLATELET VOLUME 9.2 fL (7.9-10.8); MONOCYTES % (AUTO) 13.4 %; NEUTROPHILS # (AUTO) 3.1 10^3/uL (1.5-6.6); NEUTROPHILS % (AUTO) 41.1 %; PLT - PLATELET COUNT 311 10^3/uL (130-450); RED BLOOD COUNT 4.53 10^6/uL (4.20-5.40); RED CELL DISTRIBUTION WIDTH 13.1 % (12.0-15.0); WHITE BLOOD COUNT 7.5 x10^3/uL (4.8-10.8)
[2023-12-04 09:39] LABS: THYROID STIMULATING HORMONE 3.07 uIU/mL (0.34-5.60)
[2023-12-04 09:42] LABS: ALBUMIN 4.4 g/dL (3.2-5.5); ALBUMIN/GLOBULIN RATIO 1.4 (1.0-2.2); ALKALINE PHOSPHATASE 89 IU/L (42-121); ALT ALANINE AMINOTRANSFERASE 25 IU/L (10-60); AST ASPARTATE AMINOTRANSFERASE 28 IU/L (10-42); BILIRUBIN,TOTAL 0.6 mg/dL (0.2-1.0); BUN - BLOOD UREA NITROGEN 20 mg/dL (6-20); CALCIUM 10.2 mg/dL (8.5-10.3); CARBON DIOXIDE - CO2 31 mmol/L (21-32); CHLORIDE 102 mmol/L (101-111); CHOL/HDL RATIO 2.2 (<4.4); CHOLESTEROL 244 mg/dL; CREATININE 0.9 mg/dL (0.6-1.3); GFR - MDRD 62 (>89); GLUCOSE 96 mg/dL (74-104); HDL CHOLESTEROL 110 mg/dL; LDL CHOLESTEROL,CALCULATED 117 mg/dL; LDL/HDL RATIO 1.1 (<4.4); SODIUM 140 mmol/L (135-145); TOTAL PROTEIN 7.6 g/dL (6.4-8.9); TRIGLYCERIDES 84 mg/dL (48-352); VLDL CHOLESTEROL 17 mg/dL
== END 2023-12-04 08:14 | disposition home or self-care (01) ==
LOC: LAB 08:13
PROVIDERS: ATTEND Family Medicine
DX: E03.9 Hypothyroidism, unspecified (principal); G47.00 Insomnia, unspecified; M81.0 Age-related osteoporosis without current pathological fracture; M15.9 Polyosteoarthritis, unspecified; K21.9 Gastro-esophageal reflux disease without esophagitis; F41.9 Anxiety disorder, unspecified; F32.A Depression, unspecified
CPT/HCPCS: 36415; 80053; 80061; 83721; 84443; 85025

== ENCOUNTER 2024-02-21 09:14 | Outpatient (CLI) | payer MEDICARE, BC ==
--- NOTE | 2024-02-22 09:29 | Mammography Report ---
BILATERAL DIGITAL SCREENING MAMMOGRAM 3D/2D: 02/21/2024 CLINICAL: Routine screening. Comparison is made to exams dated: 09/26/2022 mammogram, 01/11/2018 mammogram, and 01/11/2017 mammogram - [facility]. There are scattered areas of fibroglandular density in both breasts (category b / 25%-50% glandular t issue). No significant masses, calcifications, or other findings are seen in either breast. There has been no significant interval change. IMPRESSION: NEGATIVE There is no mammographic evidence of malignancy. A 1 year screening mammogram is recommended. Based on the Tyrer Cuzick model (a risk assessment model) the patient's lifetime risk is 3.2% and her 10 year risk is 2.4%. According to the ACR, ACS, and NCCN guidelines, an annual breast MRI exam rachid g with mammogram is recommended if the patient's lifetime risk is 20% or greater. This exam was interpreted at Station ID: [id number]. NOTE: For mammograms, a report in lay terms will be sent to the patient. Approximately 15% of breast malignancies will not be visualized mammographically. In the management of a palpable breast mass, a negative mammogram must not discourage biopsy of a clinically suspicious lesion. Electronically Signed By: Patrice lei/mehdi:02/21/2024 15:42:13 letter sent: No_Letter ACR BI-RADS Category 1: Negative 3341F PARENCHYMAL PATTERN: (A) - The breast(s) demonstrate(s) scattered fibroglandular densities. BI-RADS CATEGORY: (1) - 1 RECOMMENDATION: (ANNUAL) - Recommend routine annual screening mammography. [id number] 1 year screening LATERALITY: (B)
== END 2024-02-21 09:15 | disposition home or self-care (01) ==
LOC: DI 09:14
DX: Z12.31 Encounter for screening mammogram for malignant neoplasm of breast (principal); R92.323 Mammographic fibroglandular density, bilateral breasts

== ENCOUNTER 2024-02-21 09:45 | Outpatient (CLI) | payer MEDICARE, BC ==
--- NOTE | 2024-02-21 16:33 | DEXA Report ---
PROCEDURE: Dexa Spine and/or Hip INDICATIONS: POST MENOPAUSAL TECHNIQUE: Dual energy x-ray absorptiometry (DXA) was performed on a [employer] System. Regions measur ed are the AP Spine, femoral neck, and if needed forearm. COMPARISON: 01/25/2021 FINDINGS: Lumbar Spine L1 -2 : Bone Mineral Density: 0.852 g/cm/cm,T score: -2.6, osteoporosis. Change from previous -3.8% Left Femoral Neck: Bone Mineral Density: 0.672 g/cm/cm, T score: -2.6, osteoporosis. Left Hip: Bone Mineral Density: 0.795 g/cm/cm,T score: -1.7, osteopenia, change from previous 8.3%, significant (T score greater or equal to -1.0: NORMAL) (T score from -1.1 to -2.4: OSTEOPENIA) (T score less than or equal to -2.5 to: OSTEOPOROSIS) Impression: By WHO criteria, this patient has osteoporosis. No statistical interval change in bone mineral density of the lumbar spine. Interval statistical incr ease in bone mineral density of the hip. Patients with diagnosis of osteoporosis or osteopenia should have regular bone mineral density assess ment. For those eligible for Medicare, routine testing is allowed once every 2 years. Testing frequ ency can be increased for patients who have rapidly progressing disease or for those who are receivin g medical therapy to restore bone mass. Reviewed by: Yamilet Cui MD on 02/21/2024 4:32 PM PDT Approved by: Yamilet Cui MD on 02/21/2024 4:32 PM PDT Station ID: [id number]
== END 2024-02-21 09:46 | disposition home or self-care (01) ==
LOC: DI 09:45
PROVIDERS: ATTEND Family Medicine
DX: M81.0 Age-related osteoporosis without current pathological fracture (principal); Z78.0 Asymptomatic menopausal state